=== PATIENT | male | born 1980 | race Caucasian/White ===

== ENCOUNTER 2018-03-03 08:56 | Emergency (ER) | payer BC ==
[~2018-03-03] VITALS: Ht 175.3 cm; Wt 100.0 kg
[~2018-03-03 08:56] MED LIST: CEPHALEXIN500 MG OR; DILANTIN100 MG OR; NAPROSYN500 MG OR; PRILOSEC OTC20 MG OR
[2018-03-03 09:22] LABS: IMMATURE GRANULOCYTES 0.4 % (0.0-5.0); MEAN CELL VOLUME 97.8 fL CALC (80.0-100.0); MEAN CORPUSCULAR HGB 33.3 pG CALC (26.0-32.0); NEUT# 4.86 thou/uL (1.82-7.42); RED BLOOD COUNT 4.45 mill/uL (4.70-6.10); RED CELL DISTRI WIDTH 14.8 % (11.5-15.5)
[2018-03-03 09:30] LABS: ALBUMIN 3.9 g/dL (3.2-5.0); BUN 10 mg/dL (9-20); BUN/CREATININE RATIO 14 (12-20 (CALC)); CHLORIDE 104 mmol/l (95-108); CREATININE 0.7 mg/dL (0.7-1.3); ETHYL ALCOHOL 0 mg/dl (0-30); GFR > 60 ML/MIN (>=60 (CALC)); GFR FOR AFR.AMER. > 60 ML/MIN (>=60 (CALC)); LIPASE 340 u/l (23-300); SODIUM 138 mmol/l (137-146); TOTAL PROTEIN 6.6 g/dL (6.3-8.2)
[2018-03-03 09:31] LABS: HEMATOCRIT 43.5 % (39.0-50.0); HEMOGLOBIN 14.8 g/dl (14.0-18.0)
[2018-03-03 09:40] LABS: ALKALINE PHOSPHATASE 44 u/l (38-126); ANION GAP 20 (6-22 (CALC)); CARBON DIOXIDE 18 mmol/l (22-30); SGOT/AST 57 u/l (17-59)
[2018-03-03 10:25] LABS: URINE BILIRUBIN - DIPSTICK NEGATIVE (NEGATIVE); URINE BLOOD DIPSTICK NEGATIVE (NEGATIVE); URINE COLOR YELLOW; URINE GLUCOSE - DIPSTICK NEGATIVE (NEGATIVE); URINE KETONE NEGATIVE (NEGATIVE); URINE LEUK ESTERASE NEGATIVE (NEGATIVE); URINE NITRITE - DIPSTICK NEGATIVE (Negative); URINE PROTEIN - DIPSTICK TRACE mg/dL (NEG-TRACE); URINE SPECIFIC GRAVITY 1.025; URINE UROBILINOGEN - DIPSTICK 0.2 E.U./dL (0.2)
[2018-03-03 10:28] LABS: COCAINE NEGATIVE (NEGATIVE); METHADONE NEGATIVE (NEGATIVE); TETRAHYDROCANNABIONOL POSITIVE (NEGATIVE)
[2018-03-03 10:29] LABS: BARBITURATES NEGATIVE (NEGATIVE); OXCYCODONE NEGATIVE (NEGATIVE); TRICYLIC ANTIDEPRESSANTS NEGATIVE (NEGATIVE)
[2018-03-03] MEDS ORDERED: ZONISAMIDE100 MG PO (10:51)
[2018-03-03] MEDS ORDERED: ALLOPURINOL100 MG PO (10:52)
[2018-03-03] MEDS ORDERED: LEXAPRO10 MG PO (10:52)
[2018-03-03] MEDS ORDERED: XANAX0.5 MG PO (10:53)
[2018-03-03 10:55] VITALS: BP 120/76
== END 2018-03-03 10:55 | disposition home or self-care (01) | DRG 101 ==
LOC: ED 08:56
PROVIDERS: Family Medicine
DX: G40.909 Epilepsy, unspecified, not intractable, without status epilepticus (principal); M10.9 Gout, unspecified; F41.9 Anxiety disorder, unspecified; F32.9 Major depressive disorder, single episode, unspecified
CPT/HCPCS: J2060